=== PATIENT | female | born 1945 | race Caucasian/White ===

== ENCOUNTER 2018-12-26 15:50 | Emergency (ER) | payer OTHER ==
[2018-12-26] MEDS ORDERED: LIDOCAINE 1% MPF 5 ML VIAL ONE (16:07)
[2018-12-26] MEDS ORDERED: TETANUS & DIPHTHERIA TOX,ADULT 0.5 ML VIAL ONE (16:08)
--- NOTE | 2018-12-26 17:07 | ER ---
Nurse's Notes [facility] Name: Samira Taylor Age: 73 yrs Sex: Female : 1945 Arrival Date: 12/26/2018 Time: 15:53 Bed 19 Private MD: Med Eason E Diagnosis: Laceration without foreign body of right hand-webbing between index and middle fingers Presentation: 12/26 15:55 Presenting complaint: Patient states: She tripped over some bricks in her garden and aj1 she cut the area between her first and second finger, and hurt her right elbow. Denies hitting head. Care prior to arrival: None. Mechanism of Injury: Fall from standing position. Trauma event details: Injury occurred in the [facility]. 15:55 Acuity: LYDIA 4 aj1 15:55 Method Of Arrival: Ambulatory aj1 15:56 Transition of care: patient was not received from another setting of care. Onset of aj1 symptoms was December 26, 2018. Risk Assessment: Do you want to hurt yourself or someone else? Patient reports no desire to harm self or others. Initial Sepsis Screen: Does the patient meet any 2 criteria? No. Patient's initial sepsis screen is negative. Does the patient have a suspected source of infection? No. Patient's initial sepsis screen is negative. Triage Assessment: 15:57 General: Appears in no apparent distress. comfortable, Behavior is calm, cooperative, aj1 appropriate for age. Pain: Complains of pain in right hand and right elbow Pain currently is 7 out of 10 on a pain scale. Neuro: Level of Consciousness is awake, alert, obeys commands. Cardiovascular: Patient's skin is warm and dry. Respiratory: Airway is patent Respiratory effort is even, unlabored, Respiratory pattern is regular, symmetrical. Historical: - Allergies: 15:57 No Known Allergies; aj1 - PMHx: 15:57 breast cancer; pernicious anemia; mastectomy left side; aj1 - Immunization history: Last tetanus immunization: unknown. - Social history:: Smoking status: Patient/guardian denies using tobacco. - Ebola Screening: : Patient denies travel to an Ebola-affected area in the 21 days before illness onset. Screenin:00 Abuse screen: Denies threats or abuse. Denies injuries from another. Nutritional bp screening: No deficits noted. Tuberculosis screening: No symptoms or risk factors identified. Fall Risk None identified. Assessment: 16:00 General: SEE TRIAGE NOTE. bp 17:18 Reassessment: PT D/C HOME AMBULATORY WITH FAMILY, DX WITH HAND LACERATION. bp Vital Signs: 15:57 BP 143 / 51; Pulse 76; Resp 18; Temp 98.3; Pulse Ox 99% on R/A; Weight 68.95 kg (R); aj1 Height 5 ft. 3 in. (160.02 cm) (R); 15:57 Body Mass Index 26.93 (68.95 kg, 160.02 cm) aj1 ED Course: 15:53 Patient arrived in ED. mr 15:53 Med Eason MD is Private Physician. mr 15:53 Kaia Drake [facility]-C [facility]. kb 15:53 Karson Montanez MD is Attending Physician. kb 15:56 Triage completed. aj1 15:57 Arm band placed on Patient placed in an exam room. aj1 16:00 Patient has correct armband on for positive identification. Bed in low position. Call bp light in reach. Side rails up X2. Adult w/ patient. 16:04 Skip Khalil, RN is Primary Nurse. bp 16:30 Hand Right 3 View XRAY In Process Unspecified. EDMS 16:30 Assist provider with laceration repair on right hand that was 2.5 cm. or less using bp sutures. Set up tray. Performed by Kaia JAUREGUI Dressed with Neosporin, Patient tolerated well. 17:19 Patient did not have IV access during this emergency room visit. bp Administered Medications: 16:08 Drug: Lidocaine (1 %) 1 vials Volume: 5 ml; Route: Infiltration; bp 16:12 Drug: Tetanus-Diphtheria Toxoid Adult 0.5 ml {Lean Manufacturing Specialist: [employer]. Exp: iw 07/10/2019. Lot #: [id number]. } Route: IM; Site: left deltoid; 17:17 Follow up: Response: No adverse reaction bp Outcome: 17:07 Discharge ordered by . kb 17:20 Discharged to home ambulatory, with family. bp 17:20 Condition: stable 17:20 Discharge instructions given to patient, Instructed on discharge instructions, follow up and referral plans. wound care, Demonstrated understanding of instructions, follow-up care, wound care. 17:20 Patient left the ED. bp Signatures: Dispatcher [employer] EDMS Kaia Drake, MARCIANO-C ASSEMBLED WOOD PRODUCTS REPAIRER-Lizbeth Hopson, RN RN aj1 [facility] mr Chandni Christine, RN Skip Laura, RN RN bp
--- NOTE | 2018-12-26 17:08 | EDPHYS ---
Physician Documentation [facility] Name: Samira Taylor Age: 73 yrs Sex: Female : 1945 Arrival Date: 12/26/2018 Time: 15:53 Bed 19 Private MD: Med Eason E ED Physician Karson Montanez HPI: 12/26 17:01 This 73 yrs old Female presents to ER via Ambulatory with complaints of Fall kb Injury, Laceration To Hand. 17:01 Details of fall: The patient fell from an upright position, while walking. Onset: The kb symptoms/episode began/occurred just prior to arrival. Associated injuries: The patient sustained right forearm, abrasion, webbing between index and middle finger on right hand, laceration, 2 cm(s). Severity of symptoms: At their worst the symptoms were moderate, in the emergency department the symptoms are unchanged. The patient has not experienced similar symptoms in the past. The patient has not recently seen a physician. Pt tripped over a brick in the flower bed and sustained abrasion to left forearm and laceration to webbing between right index and middle finger. Full ROM of all extremities. No pain on palpation of elbow, upper arm or forearm. . Historical: - Allergies: 15:57 No Known Allergies; aj1 - PMHx: 15:57 breast cancer; pernicious anemia; mastectomy left side; aj1 - Immunization history: Last tetanus immunization: unknown. - Social history:: Smoking status: Patient/guardian denies using tobacco. - Ebola Screening: : Patient denies travel to an Ebola-affected area in the 21 days before illness onset. ROS: 16:59 Constitutional: Negative for fever, chills, and weight loss, ENT: Negative for injury, kb pain, and discharge, Neck: Negative for injury, pain, and swelling, Cardiovascular: Negative for chest pain, palpitations, and edema, Respiratory: Negative for shortness of breath, cough, wheezing, and pleuritic chest pain, Abdomen/GI: Negative for abdominal pain, nausea, vomiting, diarrhea, and constipation, Back: Negative for injury and pain, MS/Extremity: Negative for injury and deformity, Neuro: Negative for headache, weakness, numbness, tingling, and seizure. 16:59 Skin: Positive for laceration(s), of the webbing between index and middle finger on right hand. Exam: 16:59 Constitutional: This is a well developed, well nourished patient who is awake, alert, kb and in no acute distress. Head/Face: Normocephalic, atraumatic. Chest/axilla: Normal chest wall appearance and motion. Nontender with no deformity. No lesions are appreciated. Cardiovascular: Regular rate and rhythm with a normal S1 and S2. No gallops, murmurs, or rubs. Normal PMI, no JVD. No pulse deficits. Respiratory: Lungs have equal breath sounds bilaterally, clear to auscultation and percussion. No rales, rhonchi or wheezes noted. No increased work of breathing, no retractions or nasal flaring. Abdomen/GI: Soft, non-tender, with normal bowel sounds. No distension or tympany. No guarding or rebound. No evidence of tenderness throughout. MS/ Extremity: Pulses equal, no cyanosis. Neurovascular intact. Full, normal range of motion. Neuro: Awake and alert, GCS 15, oriented to person, place, time, and situation. Cranial nerves II-XII grossly intact. Motor strength 5/5 in all extremities. Sensory grossly intact. Cerebellar exam normal. Normal gait. 16:59 Skin: injury, abrasion(s), very small abrasion noted, of the right forearm, laceration(s), the wound is approximately 2 cm(s), of the webbing between index and middle finger on right hand, that can be described as clean, no foreign body, linear, without bleeding. Vital Signs: 15:57 BP 143 / 51; Pulse 76; Resp 18; Temp 98.3; Pulse Ox 99% on R/A; Weight 68.95 kg (R); aj1 Height 5 ft. 3 in. (160.02 cm) (R); 15:57 Body Mass Index 26.93 (68.95 kg, 160.02 cm) aj1 Laceration: 17:04 Wound Repair of 2cm ( 0.8in ) subcutaneous laceration to webbing between right index kb and middle finger. Irregularly shaped.. Distal neuro/vascular/tendon intact. Anesthesia: Wound infiltrated with 3 mls of 1% lidocaine. Wound prep: Extensive cleansing with hibiclenz by me, Wound irrigation with saline by ma, Wound explored. Skin closed with 6 6-0 Prolene using interrupted sutures and sterile technique. Dressed with Neosporin. Patient tolerated well. MDM: 15:59 Patient medically screened. kb 16:15 ED course: 2ml 1% plain lidocaine injected into webbing between second and third digit kb on right hand to control pain. 16:59 Data reviewed: vital signs, nurses notes. Data interpreted: Pulse oximetry: on room air kb is 99 %. Interpretation: normal. Counseling: I had a detailed discussion with the patient and/or guardian regarding: the historical points, exam findings, and any diagnostic results supporting the discharge/admit diagnosis, radiology results, the need for outpatient follow up, a family practitioner, to return to the emergency department if symptoms worsen or persist or if there are any questions or concerns that arise at home. 17:04 Test interpretation: by ED physician or midlevel provider: plain radiologic studies, kb neg for fracture. 12/26 16:07 Order name: Hand Right 3 View XRAY; Complete Time: 17:20 kb 12/26 17:05 Order name: Dressing - Wound: hattie tape index and middle finger; Complete Time: 17:17 kb Administered Medications: 16:08 Drug: Lidocaine (1 %) 1 vials Volume: 5 ml; Route: Infiltration; bp 16:12 Drug: Tetanus-Diphtheria Toxoid Adult 0.5 ml {Wet Crown Blocking Operator: [employer]. Exp: iw 07/10/2019. Lot #: [id number]. } Route: IM; Site: left deltoid; 17:17 Follow up: Response: No adverse reaction bp Disposition: 17:37 Co-signature as Attending Physician, Karson Montanez MD. rn Disposition: 12/26/18 17:07 Discharged to Home. Impression: Laceration without foreign body of right hand - webbing between index and middle fingers. - Condition is Stable. - Discharge Instructions: Laceration Care, Adult, [id number]. - Medication Reconciliation Form, Thank You Letter, Antibiotic Education, Prescription Opioid Use form. - Follow up: Emergency Department; When: As needed; Reason: Worsening of condition. Follow up: Private Physician; When: 2 - 3 days; Reason: Recheck today's complaints, Continuance of care, Re-evaluation by your physician. Signatures: Dispatcher [employer] Kaia Marc, LITIGATION ATTORNEY-C LITIGATION ATTORNEY-Lizbeth Hopson RN RN aj1 Chandni Christine RN RN iw Nieto, Roman, MD MD rn Peltier, Brian, RN RN bp Corrections: (The following items were deleted from the chart) 17:20 17:07 12/26/2018 17:07 Discharged to Home. Impression: Laceration without foreign body bp of right hand - webbing between index and middle fingers. Condition is Stable. Forms are Medication Reconciliation Form, Thank You Letter, Antibiotic Education, Prescription Opioid Use. Follow up: Emergency Department; When: As needed; Reason: Worsening of condition. Follow up: Private Physician; When: 2 - 3 days; Reason: Recheck today's complaints, Continuance of care, Re-evaluation by your physician. kb
--- NOTE | 2018-12-26 17:13 | RAD REPORT ---
EXAM DESCRIPTION: RAD - Hand Right 3 View - 12/26/2018 4:30 pm CLINICAL HISTORY: PAIN Laceration COMPARISON: No comparisons FINDINGS: Diffuse osteopenia. No fracture, dislocation or foreign body seen.
[2018-12-26 17:26] VITALS: BP 143/51; TEMP 98.3; O2SAT 99
== END 2018-12-26 17:20 | disposition home or self-care (01) ==
LOC: ER 15:50
PROC: 0JQJ0ZZ Repair Right Hand Subcutaneous Tissue and Fascia, Open Approach (ICD-10-PCS; principal; 2018-12-26)
DX: S61.411A Laceration without foreign body of right hand, initial encounter (principal); W19.XXXA Unspecified fall, initial encounter; Y93.01 Activity, walking, marching and hiking; Y92.9 Unspecified place or not applicable; Z23 Encounter for immunization; Z85.3 Personal history of malignant neoplasm of breast; Z90.12 Acquired absence of left breast and nipple
CPT/HCPCS: 90471; 90714; 99283

== ENCOUNTER 2020-04-05 13:56 | Emergency (ER) | payer OTHER ==
--- OUTSIDE RECORDS SUMMARY | 2020-04-05 13:58 | XMS REPORT | Continuity of Care Document ---
:1945 Author Organization [facility] t Address [address] [place] [address] Care Team Providers Name Role Phone Franco [facility] Attending Clinician Payers Payer Name Policy Type Policy Number Effective Date Expiration Date S ource Problems This patient has no known problems. Allergies, Adverse Reactions, Alerts Allergy Allergy Status Severity Reaction(s) Onset Inactive Treating Comm ents Source Name Type Date Date Clinician No Known DA Active U 2012-03 [facility] 0-[facility] [place] Medications This patient has no known medications. Procedures This patient has no known procedures. Encounters Start End Encounter Admission Attending Care Care Encounter Source Date/Time Date/Time Type Type Clinicians Facility Department ID 2018-11-29 2018-11-29 Office ADAM Gamez [id number] 13:23:27 14:43:13 Visit Deepthi AMBULATOR [id number] Y [id number] Results This patient has no known results.
[2020-04-05 14:53] LABS: Absolute Lymphocytes (CBC) 0.9 K/uL (0.7-4.9); Basophils % 0.2 % (0-1.3); Hematocrit 34.9 % (36.0-45.0); Lymphocytes % 16.7 % (15.3-44.8); MPV 7.7 fL (7.6-11.3); Protime INR 0.97; RBC Red Blood Cell Count 3.68 M/uL (3.86-4.86)
[2020-04-05 15:06] LABS: Albumin 3.1 g/dL (3.4-5.0); Bilirubin Direct 0.1 mg/dL (0-0.2); Bilirubin Total 0.4 mg/dL (0.2-1.0); Magnesium 1.7 mg/dL (1.8-2.4); Potassium 4.1 mmol/L (3.5-5.1); Protein, Total 6.7 g/dL (6.4-8.2); Troponin (Emerg Dept Use Only) 0.02 ng/mL (0.0-0.045)
--- NOTE | 2020-04-05 15:26 | RAD REPORT ---
EXAM DESCRIPTION: RAD - Chest Single View - 04/05/2020 3:13 pm CLINICAL HISTORY: near syncope Chest pain. COMPARISON: Chest Pa And Lat (2 Views) dated 05/04/2017; CHEST SINGLE VIEW dated 09/13/2010 FINDINGS: Portable technique limits examination quality. The lungs are grossly clear. The heart is normal in size. No displaced fractures. IMPRESSION: No acute intrathoracic process suspected.
--- NOTE | 2020-04-05 15:26 | RAD REPORT ---
EXAM DESCRIPTION: RAD - Shoulder Left 2 View - 04/05/2020 3:13 pm CLINICAL HISTORY: PAIN COMPARISON: No comparisons FINDINGS: Mild AC joint degenerative changes are present. No acute fracture or dislocation seen.
[2020-04-05 16:52] LABS: Urine Blood 1+ (NEG); Urine Glucose NEGATIVE (NEG); Urine Protein NEGATIVE (NEG); Urine Specific Gravity >1.030 (1.005-1.030); Urine pH 5.5 (5.0-7.0)
--- NOTE | 2020-04-05 17:18 | RAD REPORT ---
EXAM DESCRIPTION: CT - Head Brain Wo Cont - 04/05/2020 5:11 pm CLINICAL HISTORY: near syncope Headache, drowsiness COMPARISON: No comparisons TECHNIQUE: All CT scans are performed using dose optimization technique as appropriate and may inclu de automated exposure control or mA/KV adjustment according to patient size. FINDINGS: No intracranial hemorrhage, hydrocephalus or extra-axial fluid collection.No areas of brai n edema or evidence of midline shift. The paranasal sinuses and mastoids are clear. The calvarium is intact. IMPRESSION: No acute intracranial abnormality.
[2020-04-05 17:47] LABS: Urine Bacteria 20-50 /HPF (<20); Urine RBC <5 /HPF (NONE SEEN)
[2020-04-05] MEDS ORDERED: MAGNESIUM OXIDE 400 MG TAB ONE (17:54)
[2020-04-05] MEDS ORDERED: LIDOCAINE 4% PATCH TD ONE (18:00)
[2020-04-05] MEDS ORDERED: LIDOCAINE 4% PATCH ONE (18:13)
--- NOTE | 2020-04-05 18:17 | ER ---
Nurse's Notes [facility] Name: Samira Taylor Age: 74 yrs Sex: Female : 1945 Arrival Date: 04/05/2020 Time: 13:58 Bed 24 Private MD: Diagnosis: Urinary tract infection, site not specified Presentation: 04/05 13:58 Chief complaint: EMS states: Patient took a hot shower and became dizzy. Denies fall. vg1 Initial BP was 90/50s. Stood up BP was 80/40s. No meds were given in EMS. When seated in stretcher patients BP was 130/50s. EKG Sinus Rhythm. Coronavirus screen: Client denies travel out of the [place] in the last 14 days. Ebola Screen: Patient negative for fever greater than or equal to 101.5 degrees Fahrenheit, and additional compatible Ebola Virus Disease symptoms. Initial Sepsis Screen: Does the patient meet any 2 criteria? No. Patient's initial sepsis screen is negative. Does the patient have a suspected source of infection? No. Patient's initial sepsis screen is negative. Risk Assessment: Do you want to hurt yourself or someone else? Patient reports no desire to harm self or others. Onset of symptoms was April 05, 2020. 13:58 Method Of Arrival: EMS: [facility] 13:58 Acuity: LYDIA 3 vg1 Historical: - Allergies: 14:04 No Known Allergies; vg1 - Home Meds: 14:04 levothyroxine oral [Active]; carvedilol oral oral [Active]; anastrozole oral oral vg1 [Active]; rosuvastatin oral oral [Active]; Fish Oil oral oral [Active]; Centrum Silver oral oral [Active]; cyanocobalamin (vitamin B-12) oral oral [Active]; Zyrtec Oral [Active]; - PMHx: 14:04 breast cancer; mastectomy left side; Pernicious Anemia; vg1 - Immunization history:: Adult Immunizations up to date. - Social history:: Smoking status: Patient denies any tobacco usage or history of. Screenin:00 Abuse screen: Denies threats or abuse. Nutritional screening: No deficits noted. vg1 Tuberculosis screening: No symptoms or risk factors identified. Fall Risk No fall in past 12 months (0 pts). No secondary diagnosis (0 pts). IV access (20 points). Ambulatory Aid- None/Bed Rest/Nurse Assist (0 pts). Gait- Normal/Bed Rest/Wheelchair (0 pts) Mental Status- Oriented to own ability (0 pts). Total Arnold Fall Scale indicates No Risk (0-24 pts). Assessment: 14:00 General: Appears in no apparent distress. comfortable, Behavior is calm, cooperative. vg1 Pain: Complains of pain in Left Shoulder Pain currently is 3 out of 10 on a pain scale. at worst was 8 out of 10 on a pain scale. Alleviated by rest, Aggravated by repositioning, and touch. Neuro: Level of Consciousness is awake, alert, obeys commands, Oriented to person, place, time, situation. Neuro: Denies blurred vision dizziness. Cardiovascular: Patient's skin is warm and dry. Respiratory: Airway is patent Respiratory effort is even, unlabored, Respiratory pattern is regular, symmetrical. GI: Patient currently denies nausea. : No signs and/or symptoms were reported regarding the genitourinary system. EENT: No signs and/or symptoms were reported regarding the EENT system. Derm: Skin is pink, warm \T\ dry. Musculoskeletal: Reports pain in Left shoulder. 14:43 Reassessment: Xray at bedside. vg1 15:21 Reassessment: Patient appears in no apparent distress at this time. Patient and/or vg1 family updated on plan of care and expected duration. Pain level reassessed. Patient is alert, oriented x 3, equal unlabored respirations, skin warm/dry/pink. Patient denied any dizziness during Orthostatic blood pressures but did state vision was a little fuzzy while standing. Provider notified. 16:40 Reassessment: Patient appears in no apparent distress at this time. Patient and/or vg1 family updated on plan of care and expected duration. Pain level reassessed. Patient is alert, oriented x 3, equal unlabored respirations, skin warm/dry/pink. Patient states feeling better. 17:40 Reassessment: Patient appears in no apparent distress at this time. No changes from vg1 previously documented assessment. Patient is alert, oriented x 3, equal unlabored respirations, skin warm/dry/pink. 18:08 Reassessment: Received VO from Dae ANTONIO to administer Rocephin 1 g IVP x1. vg1 18:15 Reassessment: Patient appears in no apparent distress at this time. Patient and/or vg1 family updated on plan of care and expected duration. Pain level reassessed. Patient is alert, oriented x 3, equal unlabored respirations, skin warm/dry/pink. Patient states feeling better. Vital Signs: 13:58 BP 144 / 49; Pulse 78; Resp 16; Temp 98.3; Pulse Ox 98% on R/A; Weight 72.57 kg; Height vg1 5 ft. 3 in. (160.02 cm); Pain 0/10; 14:30 BP 133 / 60; Pulse 80; Resp 16; Pulse Ox 97% on R/A; vg1 15:10 BP 148 / 57 Supine; Pulse 77; vg1 15:13 BP 146 / 62 Sitting; Pulse 77; vg1 15:16 BP 150 / 69 Standing; Pulse 80; vg1 16:00 BP 146 / 64; Pulse 80; Resp 16; Pulse Ox 98% on R/A; vg1 17:00 BP 113 / 81; Pulse 85; Resp 20; Pulse Ox 98% on R/A; vg1 18:00 BP 138 / 69; Pulse 80; Resp 16; Pulse Ox 99% on R/A; vg1 13:58 Body Mass Index 28.34 (72.57 kg, 160.02 cm) vg1 ED Course: 13:58 Patient arrived in ED. sv 13:58 Christina Proctor, RN is Primary Nurse. vg1 14:00 Arm band placed on. vg1 14:00 Patient has correct armband on for positive identification. Bed in low position. Call 1 light in reach. Side rails up X2. 14:02 Triage completed. vg1 14:03 Dae Mullen PA is PHCP. cp 14:03 Adams Lima MD is Attending Physician. cp 14:40 Initial lab(s) drawn, by mi, sent to lab. Inserted saline lock: 20 gauge in right vg1 antecubital area, using aseptic technique. ,using aseptic technique. Done by EMS [facility]. Blood collected. 14:41 EKG done, by ED staff, reviewed by Dae ANTNOIO. vg1 15:13 XRAY Chest (1 view) In Process Unspecified. EDMS 15:13 XRAY Shoulder LEFT 2 view In Process Unspecified. EDMS 17:11 CT Head Brain wo Cont In Process Unspecified. EDMS 18:31 No provider procedures requiring assistance completed. IV discontinued, intact, vg1 bleeding controlled, No redness/swelling at site. Pressure dressing applied. Administered Medications: 17:40 Drug: Magnesium Oxide 800 mg Route: PO; vg1 18:20 Follow up: Response: No adverse reaction vg1 18:00 Drug: Lidoderm 5 % (700 mg/patch) 1 patches Route: Topical; Site: affected area; vg1 18:20 Follow up: Response: No adverse reaction vg1 18:19 Drug: Rocephin 1 grams Route: IV; Rate: calculated rate; Site: right antecubital; vg1 18:36 Follow up: Response: No adverse reaction; IV Status: Completed infusion vg1 Outcome: 18:17 Discharge ordered by . klever 18:31 Discharged to home via wheelchair. vg1 18:31 Condition: stable 18:31 Discharge instructions given to patient, Instructed on discharge instructions, follow up and referral plans. medication usage, Demonstrated understanding of instructions, follow-up care, medications, Prescriptions given X 1. 18:45 Patient left the ED. vg1 Signatures: Dispatcher [employer] Elisa Ramirez, RN RN Dae Gonzalez PA PA cp Garcia, Victoria, RN RN vg1
--- NOTE | 2020-04-05 18:18 | EDPHYS ---
Physician Documentation [facility] Name: Samira Taylor Age: 74 yrs Sex: Female : 1945 Arrival Date: 04/05/2020 Time: 13:58 Bed 24 Private MD: ED Physician Adams Lima HPI: 04/05 14:20 This 74 yrs old Female presents to ER via EMS with complaints of Blood cp Pressure Problem. 14:20 The patient has experienced near-syncope, almost passed out, felt dizzy. cp 14:20 Onset: The symptoms/episode began/occurred today. Duration: This was a single episode. cp Context: Just prior to the episode the patient experienced dizziness, lightheadedness. Associated injury: The patient did not suffer any apparent associated injury. Associated signs and symptoms: Pertinent negatives: abdominal pain, chest pain, confusion, weakness. Current symptoms: Currently, the patient is not experiencing any symptoms, the patient feels back to baseline. Patient reports she started to be lightheaded and dizzy while taking warm shower today. Went to sit down and almost passed out. EMS reports blood pressure of 90/50. Historical: - Allergies: 14:04 No Known Allergies; vg1 - Home Meds: 14:04 levothyroxine oral [Active]; carvedilol oral oral [Active]; anastrozole oral oral vg1 [Active]; rosuvastatin oral oral [Active]; Fish Oil oral oral [Active]; Centrum Silver oral oral [Active]; cyanocobalamin (vitamin B-12) oral oral [Active]; Zyrtec Oral [Active]; - PMHx: 14:04 breast cancer; mastectomy left side; Pernicious Anemia; vg1 - Immunization history:: Adult Immunizations up to date. - Social history:: Smoking status: Patient denies any tobacco usage or history of. ROS: 14:25 Constitutional: Negative for body aches, chills, fever, poor PO intake. cp 14:25 Eyes: Negative for injury, pain, redness, and discharge. cp 14:25 ENT: Negative for ear pain, sore throat, difficulty swallowing, difficulty handling secretions. 14:25 Cardiovascular: Negative for chest pain, edema, palpitations. 14:25 Respiratory: Negative for cough, shortness of breath, wheezing. 14:25 Abdomen/GI: Negative for abdominal pain, nausea, vomiting, and diarrhea, black/tarry stool, rectal bleeding. 14:25 Back: Negative for pain at rest, pain with movement. 14:25 Neuro: Positive for near syncope, Negative for altered mental status, headache, syncope, weakness. 14:25 All other systems are negative. Exam: 14:30 Constitutional: The patient appears in no acute distress, alert, awake, comfortable, cp non-diaphoretic, non-toxic, well developed, well nourished. 14:30 Head/Face: Normocephalic, atraumatic. cp 14:30 Eyes: Periorbital structures: appear normal, Pupils: equal, round, and reactive to light and accomodation, Extraocular movements: intact throughout, Conjunctiva: normal, no exudate, no injection, Sclera: no appreciated abnormality, Lids and lashes: appear normal, bilaterally. 14:30 ENT: External ear(s): are unremarkable, Nose: is normal, Posterior pharynx: Airway: no evidence of obstruction, patent. 14:30 Neck: ROM/movement: is normal, is supple, without pain, no range of motions limitations, no nuchal rigidity. 14:30 Chest/axilla: Inspection: normal, Palpation: is normal, no crepitus, no tenderness. 14:30 Cardiovascular: Rate: normal, Rhythm: regular, Pulses: Pulses are 2+ in right radial artery and left radial artery. Edema: is not appreciated, JVD: is not appreciated. 14:30 Respiratory: the patient does not display signs of respiratory distress, Respirations: normal, no use of accessory muscles, no retractions, labored breathing, is not present, Breath sounds: are clear throughout, no decreased breath sounds, no stridor, no wheezing. 14:30 Abdomen/GI: Inspection: abdomen appears normal, Palpation: abdomen is soft and non-tender, in all quadrants. 14:30 Back: pain, is absent, ROM is normal. 14:30 Neuro: Orientation: to person, place \T\ time. Mentation: is normal, Cerebellar function: Romberg testing is negative, normal finger to nose testing, Motor: moves all fours, strength is normal, Sensation: is normal. 14:40 ECG was reviewed by the Attending Physician. cp Vital Signs: 13:58 BP 144 / 49; Pulse 78; Resp 16; Temp 98.3; Pulse Ox 98% on R/A; Weight 72.57 kg; Height vg1 5 ft. 3 in. (160.02 cm); Pain 0/10; 14:30 BP 133 / 60; Pulse 80; Resp 16; Pulse Ox 97% on R/A; vg1 15:10 BP 148 / 57 Supine; Pulse 77; vg1 15:13 BP 146 / 62 Sitting; Pulse 77; vg1 15:16 BP 150 / 69 Standing; Pulse 80; vg1 16:00 BP 146 / 64; Pulse 80; Resp 16; Pulse Ox 98% on R/A; vg1 17:00 BP 113 / 81; Pulse 85; Resp 20; Pulse Ox 98% on R/A; vg1 18:00 BP 138 / 69; Pulse 80; Resp 16; Pulse Ox 99% on R/A; vg1 13:58 Body Mass Index 28.34 (72.57 kg, 160.02 cm) vg1 MDM: 14:06 Patient medically screened. cp 15:00 Differential Diagnosis: cardiac arrhythmia, cerebrovascular accident, GI bleed, cp idiopathic syncope, sepsis, transient ischemic attack, vasovagal episode. 18:15 Data reviewed: vital signs, nurses notes, lab test result(s), EKG, radiologic studies, cp CT scan, plain films. 18:15 Test interpretation: by ED physician or midlevel provider: ECG, plain radiologic cp studies. Counseling: I had a detailed discussion with the patient and/or guardian regarding: the historical points, exam findings, and any diagnostic results supporting the discharge/admit diagnosis, lab results, radiology results, the need for outpatient follow up, a family practitioner, to return to the emergency department if symptoms worsen or persist or if there are any questions or concerns that arise at home. Response to treatment: the patient's symptoms have markedly improved after treatment, and as a result, I will discharge patient. 04/05 14:17 Order name: Basic Metabolic Panel; Complete Time: 16:00 cp 04/05 16:00 Interpretation: Normal except: GFR 51. cp 04/05 14:17 Order name: CBC with Diff; Complete Time: 16:00 cp 04/05 16:01 Interpretation: Normal except: RBC 3.68; HGB 11.8; HCT 34.9; PLT 140. cp 02/04 14:17 Order name: LFT's; Complete Time: 16:00 cp 02/04 16:03 Interpretation: Normal except: ALB 3.1; GLOB 3.6; A/G 0.9. cp 02/04 14:17 Order name: Magnesium; Complete Time: 16:00 cp 02/04 16:03 Interpretation: Abnormal: MG 1.7. cp 02/ 14:17 Order name: NT PRO-BNP; Complete Time: 16:00 cp 02/ 14:17 Order name: PT-INR; Complete Time: 16:00 cp 02/04 14:17 Order name: Troponin (emerg Dept Use Only); Complete Time: 16:00 cp /04 14:17 Order name: XRAY Chest (1 view); Complete Time: 16:00 cp 02/04 14:17 Order name: XRAY Shoulder LEFT 2 view; Complete Time: 16:00 cp 02/04 16:12 Order name: CT Head Brain wo Cont; Complete Time: 17:20 cp 02/04 16:42 Order name: Urine Dipstick--Ancillary (enter results) em1 04 16:42 Order name: Urine Dipstick-Ancillary; Complete Time: 17:20 EDMS 04 17:20 Order name: Urine Microscopic Only cp 04 17:48 Order name: Urine Culture EDMS /04 14:17 Order name: EKG; Complete Time: 14:18 cp 02/04 14:17 Order name: Cardiac monitoring; Complete Time: 14:39 cp 02/04 14:17 Order name: EKG - Nurse/Tech; Complete Time: 14:39 cp 02/04 14:17 Order name: IV Saline Lock; Complete Time: 14:39 cp 02/04 14:17 Order name: Labs collected and sent; Complete Time: 14:39 cp 02/04 14:17 Order name: O2 Per Protocol; Complete Time: 14:21 cp 02/04 14:17 Order name: O2 Sat Monitoring; Complete Time: 14:21 cp 02/04 14:17 Order name: Orthostatics; Complete Time: 15:21 cp 02/04 16:12 Order name: Urine Dipstick-Ancillary (obtain specimen); Complete Time: 16:30 cp EC:40 Rate is 81 beats/min. Rhythm is regular. NM interval is normal. QRS interval is normal. cp QT interval is normal. T waves are Flattened in lead aVL. Interpreted by me. Reviewed by me. Administered Medications: 17:40 Drug: Magnesium Oxide 800 mg Route: PO; vg1 18:20 Follow up: Response: No adverse reaction vg1 18:00 Drug: Lidoderm 5 % (700 mg/patch) 1 patches Route: Topical; Site: affected area; vg1 18:20 Follow up: Response: No adverse reaction vg1 18:19 Drug: Rocephin 1 grams Route: IV; Rate: calculated rate; Site: right antecubital; vg1 18:36 Follow up: Response: No adverse reaction; IV Status: Completed infusion vg1 Disposition: 04/06 06:06 Co-signature as Attending Physician, Adams Lima MD I agree with the assessment and kdr plan of care. Disposition: 04/05/20 18:17 Discharged to Home. Impression: Urinary tract infection, site not specified. - Condition is Stable. - Discharge Instructions: Urinary Tract Infection, Adult. - Prescriptions for Augmentin 875- 125 mg Oral Tablet - take 1 tablet by ORAL route every 12 hours for 7 days; 14 tablet. - Medication Reconciliation Form, Thank You Letter, Antibiotic Education, Prescription Opioid Use form. - Follow up: Private Physician; When: 1 - 2 days; Reason: Recheck today's complaints. - Problem is new. - Symptoms have improved. Signatures: Dispatcher [employer] Adams Viveros MD MD kdr Page, Corey, PA PA cp Garcia, Victoria, RN RN vg1 Corrections: (The following items were deleted from the chart) 02 17:40 17:20 UA MICROSCOPIC+U.LAB.BRZ ordered. [facility] EDMS 18:45 18:17 04/05/2020 18:17 Discharged to Home. Impression: Urinary tract infection, site vg1 not specified. Condition is Stable. Forms are Medication Reconciliation Form, Thank You Letter, Antibiotic Education, Prescription Opioid Use. Follow up: Private Physician; When: 1 - 2 days; Reason: Recheck today's complaints. Problem is new. Symptoms have improved. cp
[2020-04-05] MEDS ORDERED: CEFTRIAXONE/SWI 1gm 1 GM/10 ML SYR ONE (18:27)
[2020-04-05 19:12] VITALS: TEMP 98.3
[2020-04-05 19:24] VITALS: BP 138/69; O2SAT 99
== END 2020-04-05 18:45 | disposition home or self-care (01) ==
LOC: ER 13:56
DX: N39.0 Urinary tract infection, site not specified (principal); Z85.3 Personal history of malignant neoplasm of breast; Z90.12 Acquired absence of left breast and nipple
CPT/HCPCS: 96365; 93005; 87088; 85025; 87086; 80048; 36415; 83735; 85610; 80076; 84484; 83880; 70450; 71045; 73030; 99284; J0696; 81003; 81015